=== PATIENT | female | born 1960 | race Caucasian/White ===

== ENCOUNTER 2017-05-24 04:38 | Emergency (ER) | payer BC ==
[2017-05-24] MEDS ORDERED: Aspirin Low Dose CHEW TAB* 81 MG PO ONE (04:57)
--- NOTE | 2017-05-24 05:06 | ED ---
Reji Reynoso Rebecca, scribed for Oswaldo Sotomayor MD on 05/24/17 at 0458 . Upper Extremity Pain - HPI Summary HPI Summary: Pt is a 57 y/o F who presents to ED c/o LUE pain. Pain began at 0330 this morning and has been intermittent since onset with approximately 8 episodes of pain, lasting 40 seconds each. Pain is characterized as a "deep ache" and is currently moderate, ranked 4/10. 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 Sx aggravated by nothing. Additionally c/o dizziness when pain is present. No prior similar episodes of pain. 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, Still Present Timing: Intermittent, Lasting Seconds - 40 seconds Severity Currently: Moderate - 4/10 Pain Location: Arm - LUE Character: Aching - "deep ache" Aggravating Factor(s): Nothing Associated Signs & Symptoms: Positive: Other - Dizziness - Allergies/Home Medications Allergies/Adverse Reactions: Allergies Allergy/AdvReac Type Severity Reaction Status Date / Time No Known Allergies Allergy Verified 05/24/17 04:39 PMH/Surg Hx/FS Hx/Imm Hx Cardiovascular History: Reports: Hx Hypertension Neurological History: Reports: Hx Headaches - Cancer History Hx Chemotherapy: No Hx Radiation Therapy: No - Surgical History Surgery Procedure, Year, and Place: 1970 Infectious Disease History: No Infectious Disease History: Denies: Traveled Outside the [place] in Last 30 Days - Family History Known Family History: Positive: Other - Neg GI disorders - Social History Substance Use Type: Reports: None Smoking Status (MU): Never Smoked Tobacco Review of Systems Positive: Arthralgia - LUE pain Neurological: Other - Dizziness All Other Systems Reviewed And Are Negative: Yes Physical Exam Triage Information Reviewed: Yes Vital Signs On Initial Exam: Initial Vitals Temp Pulse Resp BP Pulse Ox 97.5 F 65 18 146/84 100 05/24/17 04:40 05/24/17 04:40 05/24/17 04:40 05/24/17 04:40 05/24/17 04:40 Vital Signs Reviewed: Yes Appearance: Positive: No Pain Distress, Thin Skin: Positive: Warm Head/Face: Positive: Normal Head/Face Inspection Eyes: Positive: AKOSUA ENT: Positive: Hearing grossly normal Neck: Positive: Supple Respiratory/Lung Sounds: Positive: Clear to Auscultation, Breath Sounds Present Cardiovascular: Positive: RRR Abdomen Description: Positive: Nontender, Soft Bowel Sounds: Positive: Present Musculoskeletal: Positive: Strength/ROM Intact Neurological: Positive: Alert, Oriented to Person Place, Time Psychiatric: Positive: Affect/Mood Appropriate Diagnostics - Vital Signs Vital Signs Temp Pulse Resp BP Pulse Ox 05/24/17 04:40 97.5 F 65 18 146/84 100 - Laboratory Result Diagrams: 05/24/17 05:11 05/24/17 05:11 Lab Statement: Any lab studies that have been ordered have been reviewed, and results considered in the medical decision making process. - Radiology CXR Xray Interpretation: No Acute Changes Radiology Interpretation Completed By: ED Physician - EKG 0450 Cardiac Rate: NL - 67 bpm EKG Rhythm: Sinus Rhythm EKG Interpretation: No STEMI Course/Dx - Course Assessment/Plan: Pt is a 57 y/o F who presents to ED c/o intermittent LUE pain since 0330 this morning. Approximately 8 episodes of pain, lasting 40 seconds each. Pain is characterized as a "deep ache" and is currently moderate, ranked 4 /10. 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 Additionally c/o dizziness when pain is present. No prior similar episodes of pain. EKG reveals no acute findings. CXR reveals no acute findings. Troponin 0.00. Pt will be alex dout, pending dispo, awaiting repeat troponin. - Diagnoses Provider Diagnoses: Arm pain Discharge - Discharge Plan Condition: Fair Disposition: HOME Discharge Disposition Comment: Pt will be signed out, pending dispo, awaiting repeat Trop Patient Education Materials: Arm Pain (ED) Referrals: Heidy Mcclain NP [Primary Care Provider] - 1 Day The documentation as recorded by the Reji dang Rebecca accurately reflects the service I personally performed and the decisions made by me, Oswaldo Sotomayor MD.
[2017-05-24 05:26] LABS: Hematocrit 39 % (35-47); Mean Corpuscular HGB Conc 33 g/dl (31-36); Mean Corpuscular Hemoglobin 30 pg (27-31); Mean Corpuscular Volume 91 fL (80-97); Mean Platelet Volume 9 um3 (7.4-10.4); Red Blood Count 4.34 10^6/ul (4.0-5.4); Red Cell Distribution Width 14 % (10.5-15); White Blood Count 4.9 10^3/ul (3.5-10.8)
[2017-05-24 05:40] LABS: Albumin 4.1 g/dL (3.2-5.2); BUN/Creatinine Ratio 16.3 (8-20); Calcium 9.5 mg/dL (8.6-10.3); EGFR African American 87.8 (>60); EGFR Non-African American 68.3 (>60); Globulin 2.6 g/dL (2-4); Magnesium 2.1 mg/dL (1.9-2.7); Potassium 3.4 mmol/L (3.5-5.0); Total Bilirubin 1.5 mg/dL (0.2-1.0); Total Protein 6.7 g/dL (6.4-8.9)
--- NOTE | 2017-05-24 07:41 | RAD ---
INDICATION: Chest pain. COMPARISON: There are no prior studies available for comparison. TECHNIQUE: Dual-energy PA and lateral views of the chest were obtained. FINDINGS: The heart is within normal limits in size. Mediastinal and hilar contours appear within normal limits. The lungs are clear. No pleural effusion or pneumothorax is seen. IMPRESSION: NO EVIDENCE FOR ACTIVE CARDIOPULMONARY DISEASE.
[2017-05-24 11:37] VITALS: BP 128/63
== END 2017-05-24 10:20 | disposition home or self-care (01) ==
LOC: ED 04:38
DX: M79.602 Pain in left arm (principal); R42 Dizziness and giddiness
CPT/HCPCS: 36415; 71020; 80053; 82550; 83605; 83735; 84484; 85025; 93005; 99282; A9270-GY

== ENCOUNTER 2019-07-19 14:48 | Emergency (ER) | payer BC ==
[2019-07-19 15:21] VITALS: BP 130/87
--- NOTE | 2019-07-19 15:24 | UC ---
Complaint Female HPI - HPI Summary HPI Summary: 59 yo female presents with urinary frequency that began today. She tells me that she had a double mastectomy 2 days ago at [facility] and was discharged yesterday. This morning she noticed some urinary frequency. She called her surgeon's office and they recommended that she have urine testing performed. She did not have a montelongo catheter placed. Denies fever, chills, abdominal pain, n/v, or flank pain. She has not had a BM since 07/17, but is taking colace for this as per instructions from her surgeon's office. - History Of Current Complaint Chief Complaint: UCGU Stated Complaint: URINARY COMPLAINT Time Seen by Provider: 07/19/19 15:23 Hx Obtained From: Patient Hx Last Menstrual Period: POST Onset/Duration: Sudden Onset Severity Initially: Mild Severity Currently: Mild Pain Intensity: 3 Pain Scale Used: 0-10 Numeric - Allergies/Home Medications Allergies/Adverse Reactions: Allergies Allergy/AdvReac Type Severity Reaction Status Date / Time No Known Allergies Allergy Verified 06/04/19 07:52 PMH/Surg Hx/FS Hx/Imm Hx - Additional Past Medical History Additional PMH: BRCA Cardiovascular History: Hypertension Neurological History: Migraine Psychological History: Anxiety, Depression - Surgical History Surgical History: None Surgery Procedure, Year, and Place: Bladder 1970. double mastectomy. RIGHT arm lymphnodes removed, NO BLOOD DRAWS/ BLOOD PRESSURE TO RIGHT ARM - Family History Known Family History: Positive: Other - Neg GI disorders - Social History Lives: With Family Alcohol Use: Weekly Alcohol Amount: 1-2 glasses of wine Substance Use Type: None Smoking Status (MU): Never Smoked Tobacco Review of Systems All Other Systems Reviewed And Are Negative: No Constitutional: Positive: Negative Respiratory: Positive: Negative Cardiovascular: Positive: Negative Genitourinary: Positive: Dysuria Neurovascular: Positive: Negative Neurological: Positive: Negative Psychological: Positive: Negative Physical Exam - Summary Physical Exam Summary: GENERAL: NAD. WDWN. No pain distress. NECK: Supple. Nontender. No lymphadenopathy. CHEST: CTAB. No r/r/w. No accessory muscle use. Breathing comfortably and in no distress. CV: RRR. Without m/r/g. Pulses intact. Cap refill <2seconds ABDOMEN: Soft. NTTP. No distention or guarding. No CVA tenderness. Bowel sounds present NEURO: Alert. PSYCH: Age appropriate behavior. Triage Information Reviewed: Yes Vital Signs: Initial Vital Signs Temp 99.1 F 07/19/19 15:14 Pulse 64 07/19/19 15:14 Resp 16 07/19/19 15:14 BP 130/87 07/19/19 15:14 Pulse Ox 99 07/19/19 15:14 Laboratory Tests 07/19/19 15:30 POC Urine Color Light yellow POC Urine Clarity Clear POC Urine pH 7.0 POC Ur Specif [place] 1.010 POC Urine Protein Negative POC Ur Glucose (UA) Negative POC Urine Ketones Negative POC Urine Blood Negative POC Urine Nitrite Negative POC Urine Bilirubin Negative POC Urine Urobilinogen 0.2 POC U Leukocyte Esteras Negative Vital Signs Reviewed: Yes Complaint Female Dx - Course Course Of Treatment: UA negative. Will send for urine culture and treat accordingly. Advised to go to the ED if she develops a fever or worsening symptoms - Differential Dx/Diagnosis Provider Diagnosis: Urinary frequency Discharge ED - Sign-Out/Discharge Documenting (check all that apply): Patient Departure All imaging exams completed and their final reports reviewed: No Studies - Discharge Plan Condition: Stable Disposition: HOME Referrals: Heidy Mcclain NP [Primary Care Provider] - Additional Instructions: Your urine test did not show any sign of an infection today, but we have sent this to the lab for further testing and will treat accordingly. If you have not heard about your results by 07/21/19 - please call our clinic at [phone] to ask about your results. If you develop a fever, shortness of breath, chest pain, new or worsening symptoms - please call your PCP or go to the ED immediately. - Billing Disposition and Condition Condition: STABLE Disposition: Home
== END 2019-07-19 15:49 | disposition home or self-care (01) ==
LOC: UCEAST 14:48
DX: R35.0 Frequency of micturition (principal); I10 Essential (primary) hypertension
CPT/HCPCS: 81003; 87086; 99211; G0463